=== PATIENT | male | born 1955 | race Caucasian/White ===

== ENCOUNTER 2022-12-06 09:20 | Outpatient (CLI) | payer OTHER, MEDICARE, SELFPAY ==
[2022-12-07 11:02] LABS: Albumin* 4.4 g/dL (3.3-5.0)
[2022-12-07 11:05] LABS: Alkaline Phosphatase* 74 U/L (40-150); Aspartate Amino Transferase* 23 U/L (12-35); Bilirubin Direct* 0.2 mg/dL (0.0-0.5); Bilirubin Total* 2.1 mg/dL (0.1-1.5); Total Protein* 7.4 g/dL (6.0-8.3)
[2022-12-07 11:06] LABS: Alanine Aminotransferase* 25 U/L (4-50)
== END 2022-12-06 09:21 | disposition home or self-care (01) ==
PROVIDERS: PCP Family Medicine; Visit Provider Family Medicine
DX: R20.0 Anesthesia of skin (principal); F10.10 Alcohol abuse, uncomplicated; Z13.6 Encounter for screening for cardiovascular disorders; Z12.5 Encounter for screening for malignant neoplasm of prostate
CPT/HCPCS: 80048; 80061; 80076; 84153; 84443; 85025; 86140

== ENCOUNTER 2023-03-26 06:01 | Day surgery (SDC) | payer OTHER, MEDICARE, SELFPAY ==
[2023-03-26] VITALS (11 sets, daily range): BP systolic 149–186; BP diastolic 95–105; PULSE 57–73; RESP 14–16; TEMP 36.7–36.8; O2SAT 96–99
--- OUTSIDE RECORDS SUMMARY | 2023-03-26 06:04 | XMS_ITS | Clinical Summary ---
Author Name Unknown Organization [employer] [employer] [facility] Address [place], [place] [address] Care Team Providers Care Solar System Designer Name Role Phone Alvarez Moreno MD Primary Care Provider [phone] Allergies No known active allergies Medications Medication Sig Dispensed Refills Start Date End Date Status LORazepam (ATIVAN) 1 mg tabletIndications:An xiety state Take 1 tablet by mouth every 6 hours if needed for Anxiety. 30 tablet 0 06/22/2019 Active Blood Pressure MonitorIndications:H TN (hypertension) Check BP once to twice weekly. 1 Each 0 02/07/2021 Active predniSONE (DELTASONE) 20 mg tabletIndications:Vi ral URI with cough Take 2 tablets (40 mg) with food once daily in the morning for the first 7 days, then take 1 tablet with food in the morning on days 8-10. 17 Tablet 0 02/07/2021 Active benzonatate (TESSALON) 100 mg capsuleIndications:V iral URI with cough Take 1 Capsule (100 mg) by mouth 3 times daily if needed for Cough. Take 1 capsule every 8 hours as needed for cough. 30 Capsule 0 02/07/2021 Active Active Problems Problem Noted Date Diagnosed Date Anxiety state, unspecified 10/26/2010 Eczema Immunizations Name Administration Dates Next Due COVID-19 vaccine ([employer] NTROLI 30mcg/0.3mL) JENNIFFER RUTHERFORD 02/07/2021,07/21/2020,06/30/2020 DTaP 12/26/2013 Influenza A (H1N1), Inactiva tamika (Age >=3 Years) 02/15/2009 Influenza Virus, Unspecified 11/28/2010 Influenza, IIV3 (Age >=3 years) 12/31/19 13,11/28/2010,01/12/2010,2007,01/16/2006,01/28/2003 Influenza, IIV4 02/07/2021,12/26/2013 Td (Age >=7 Years) 03/22/2006 Td, Preservative Free (age > = 7 Years) 03/22/2006 Family History Medical History Relation Name Comments Cancer Father lung Heart Disease Father Stroke Father Cancer Mother brain Cancer-breast Mother Cancer-colon Mother Stroke Sister 1 Cancer Sister 6 ovarian Relation Name Status Comments Brother Alive Father (Age 76) cancer Mother (Age 57) cancer Sister 1 Alive Sister 2 Alive Sister 3 Alive Sister 4 Alive Sister 5 Alive Sister 6 Social History Tobacco Use Types Packs/Day Years Used Date Smoking Tobacco: Former Cigarettes 30 1 03/01/1976 - 12/30/2006 Smokeless Tobacco: Never Tobacco Cessation:Counseling Given: Yes Alcohol Use Standard Drinks/Week Comments Yes 0 (1 standard drink = 0.6 oz pur e alcohol) occasional PHQ-2 Answer Date Recorded PHQ-2 TOTAL SCORE 3 06/22/2019 Social Connections Answer Date Recorded Frequency of Communication with Friends and Fami ly Not on file 02/25/2021 Financial Resource Strain Answer Date R ecorded Difficulty of Paying Living Expenses Not on file 02/25/2021 Difficulty of Paying Living Expenses Not on file 02/25/2021 Sex and Gender Information Value Date Recorded Sex Assigned at Not on file Gender Identity Not on file Sexual Orientation Not on file Obstetrics History Last Filed Vital Signs Vital Sign Reading Time Taken Comments Blood Pressure 142/90 02/07/2021 7:36 AM [employer] SAL[employer]IST[employer] Pulse 80 02/07/2021 7:36 AM [employer] Temperature 36.7 ??C (98.1 ??F) 10/05/2019 11:56 AM C DT Respiratory Rate 16 10/05/2019 11:56 AM CDT Oxygen Saturation 98% 02/07/2021 7:36 AM [employer] ASSISTANT Inhaled Oxygen Concentration - - Weight 81.2 kg (179 lb 1.6 oz) 02/07/2021 7:36 A M [employer] Height 169 cm (5' 6.54) 08/13/2018 1:29 PM CDT Body Mass Index 28.44 08/13/2018 1:29 PM CDT Plan of Treatment Health Maintenance Due Date Last Done Comments HIV for age 15-65 1972 Hepatitis C screening for ag e 18-79 09/11/1975 Lipids for age 45-75 2002 Zoster (shingles) series for age 50+ (1 of 2) 09/11/2007 Colonoscopy through age 75 02/27/2015 02/27/2010, Tetanus booster 03/22/2016 03/22/2006, 03/22/2006 BMI (ht and wt on same day) for age 18+ 08/14/2019 08/13/2018, 07/18/2015 Depression screening for age 12+ 06/21/2020 06/22/19 20, 04/05/2015 Pneumococcal series for age 65+ (1 of 1 - PCV) 2022 COVID-19 vaccine series (4 - 2022- season) 2022 02/07/2021, 07/21/2020, 06/30/2020 Influenza for age 65+ 10/26/2022 02/07/2021 , 12/26/2013, 12/30/2012, Additional history exists Tdap Completed 12/26/2013 Care Teams Solar System Designer Relationship Specialty Start Date End Date Alvarez Moreno MD [address] [facility] [address] PCP - General 06/29/05
[2023-03-26] MEDS: lidocaine HCL 2 % MULTIDOSE 20 ML VIAL 7 ML INJECTION (07:15)
[2023-03-26] MEDS: BUPIVACAINE 0.5% 30 ML 5 ML INJECTION (07:15)
--- NOTE | 2023-03-26 07:17 | PM.ORPRC ---
Procedure Note Date of procedure: 03/26/23 Procedure: Preop diagnosis: Left upper extremity carpal tunnel syndrome Postop diagnosis: Left upper extremity carpal tunnel syndrome Procedure: Left upper extremity carpal tunnel release Anesthesia: Local Surgeon: Prabhjot Bernstein MD therapy administrative assistant: MOAHN Graham EBL: 5 mL Complications: None Specimens: None Drains: None Indications: The patient has a history of left upper extremity carpal tunnel syndrome symptoms. Despite appropriate nonoperative management consisting of nighttime bracing and occupational therapy they continue to have symptoms. Operative intervention was recommended. The risks, benefits alternatives and expected outcomes were discussed in detail. These included but were not limited to: Infection, bleeding, injury to blood vessel or nerve, venous thromboembolism. All questions were answered to their satisfaction. The patient was placed supine on the operating room table. Local anesthesia was established with 0.5% Marcaine without epinephrine and 2% lidocaine without epinephrine. The hand was prepped and draped in usual sterile fashion. The limb was elevated the forearm pneumatic tourniquet was inflated to 250 mm of mercury. A longitudinal incision was made centered over the radial border of the ring finger at the base of the palm. Subcutaneous dissection was sharply taken through the palmar fascia and the palmaris brevis to the transverse carpal ligament. The ligament was divided in line with the incision. Proximal and distal dissection was carried with tenotomy and Metzenbaum scissors for a wide decompression of the carpal tunnel. The tourniquet was released, bleeding was controlled with direct pressure. The wound was closed with a 3-0 nylon. A bulky dry dressing was applied, sponge and needle counts were correct x 2. The patient tolerated the procedure well, there were no apparent complications. They were sent to same day surgery in satisfactory condition. Plan: Use of the hand as tolerates. Discontinue the intraoperative dressing on postoperative day 3 and may get the wound wet as tolerates. Follow up in the office in 2 weeks for a wound check and suture removal.
[2023-03-26] MEDS: lidocaine HCL 2 % MULTIDOSE 20 ML VIAL 3 ML INJECTION (07:38)
== END 2023-03-26 08:10 | disposition home or self-care (01) ==
PROVIDERS: PCP Family Medicine; Visit Provider Orthopaedic Surgery
PROC: (CPT 64721; principal; 2023-03-26 07:15)
DX: G56.02 Carpal tunnel syndrome, left upper limb (principal)
CPT/HCPCS: 64721; J0665